=== PATIENT | female | born 1945 | race Caucasian/White ===

== ENCOUNTER 2017-01-09 06:48 | Day surgery (SDC) | payer MEDICARE, BC, MEDICAID ==
[2017-01-09] MEDS ORDERED: BALANCED SALT IRRIG SOLN COMB1 500 ML, VANCOMYCIN FOR BSS PLUS 10 MG, GENTAMICIN SULFAT... IO ONE ×4 (07:00)
[2017-01-09] MEDS ORDERED: VANCOMYCIN FOR CATARACT SURGERY MC ONE ×2 (07:00)
[2017-01-09] MEDS ORDERED: PHENYLEPHRINE 2.5% OPHT DROP 2 ML BOTTLE ONE (07:18)
[2017-01-09] MEDS ORDERED: CIPROFLOXACIN 0.3% OPHT DROP 2.5 ML BOTTLE ONE (07:18)
[2017-01-09] MEDS ORDERED: FLURBIPROFEN 0.03% OPHT DROP 2.5 ML BOTTLE ONE (07:18)
[2017-01-09] MEDS ORDERED: NEO/POLYMYX B/DEXAME OPHT OINT 3.5 GM TUBE ONE (07:18)
[2017-01-09] MEDS ORDERED: TIMOLOL MALEATE 0.5% OPHT DROP 5 ML BOTTLE ONE (07:18)
[2017-01-09] MEDS ORDERED: LIDOCAINE-MPF 2% 5 ML VIAL ONE (07:18)
[2017-01-09] MEDS ORDERED: LIDOCAINE HCL-MPF 1% 5 ML VIAL ONE (07:18)
[2017-01-09] MEDS ORDERED: CYCLOPENTOLATE 1% OPHT DROP 2 ML BOTTLE ONE (07:18)
[2017-01-09] MEDS ORDERED: TROPICAMIDE 1% OPHT DROP 3 ML BOTTLE ONE (07:18)
[2017-01-09] MEDS ORDERED: TETRACAINE HCL 0.5% OPHT DROP 2 ML BOTTLE ONE (07:18)
[2017-01-09] MEDS ORDERED: EPINEPHRINE 1 MG/1 ML AMP ONE (07:19)
[2017-01-09] MEDS ORDERED: ACETYLCHOLINE CHLORIDE 1% OPHT 1 EA KIT ONE (07:19)
[2017-01-09] MEDS ORDERED: BALANCED SALT IRRIG SOLN COMB2 15 ML IRRIG.SOLN ONE (07:19)
[2017-01-09] MEDS ORDERED: BUPIVACAINE PF 0.5% 30 ML VIAL ONE (07:19)
[2017-01-09] MEDS ORDERED: HYALURONIDASE,OVINE 200 UNITS/ML VIAL ONE (07:19)
[2017-01-09] MEDS ORDERED: HYALURONATE SODIUM 8.5 MG/0.85 ML DISP.SYRIN ONE ×2 (07:20→08:58)
[2017-01-09] MEDS ORDERED: HYALURONATE SODIUM 12.8 MG/0.8 ML DISP.SYRIN ONE (07:20)
[2017-01-09] MEDS ORDERED: BALANCED SALT IRRIG SOLN COMB1 500 ML ONE (08:05)
[2017-01-09] MEDS ORDERED: FENTANYL CITRATE 100 MCG/2 ML AMPUL ONE (08:39)
== END 2017-01-09 10:40 | disposition home or self-care (01) ==
LOC: DS 06:48
PROVIDERS: ATTEND Ophthalmology
DX: H26.9 Unspecified cataract (principal); M19.90 Unspecified osteoarthritis, unspecified site; F31.9 Bipolar disorder, unspecified; M54.16 Radiculopathy, lumbar region; E66.9 Obesity, unspecified; G40.909 Epilepsy, unspecified, not intractable, without status epilepticus; I10 Essential (primary) hypertension
CPT/HCPCS: A4663; J0171; J1580; J3010; J3370; J3471; J3490; J7120; J7321; V2632